=== PATIENT | female | born 1995 | race Caucasian/White ===

== ENCOUNTER 2017-07-15 12:52 | Emergency (ER) | payer OTHER ==
[~2017-07-15] VITALS: Ht 167.6 cm; Wt 51.7 kg
[~2017-07-15 12:52] MED LIST: AMOXICILLIN 50500 MG PO; BACTRIM DS TAB1 EACH PO; DIFLUCAN150 MG PO; DOXYCYCLINE 10100 MG PO; FLAGYL500 M1 PO; FLAGYL500 MG PO; HYDROCODONE-AP1 EAC6 PO; IBUPROFEN 800800 M1 PO; NAPROSYN500 MG PO; NOHOMEMEDICATIONS; NORCO 5-325 TA1 EACH PO; OMEPRAZOLE 20 M20 M1 PO; PHENERGAN 25 MG25 M1 PO; TRAMADOL 50 MG50 MG PO; ZOFRAN ODT4 MG PO; ZOFRAN4 MG PO
[2017-07-15] MEDS ORDERED: OSELB75 PO (13:10)
[2017-07-15] MEDS ORDERED: ZOFRAN ODT4 MG PO (13:11)
[2017-07-15] MEDS ORDERED: PROMETHAZINE V473 ML PO (13:11)
[2017-07-15] MEDS ORDERED: IBUPROFEN 600600 M1 PO (13:11)
[2017-07-15 14:04] VITALS: BP 108/75
== END 2017-07-15 14:05 | disposition home or self-care (01) ==
LOC: M.ERS 12:52
DX: J11.1 Influenza due to unidentified influenza virus with other respiratory manifestations (principal); K21.9 Gastro-esophageal reflux disease without esophagitis

== ENCOUNTER 2017-08-03 17:13 | Emergency (ER) | payer OTHER ==
[~2017-08-03] VITALS: Ht 167.6 cm; Wt 51.7 kg
[~2017-08-03 17:13] MED LIST changes: +IBUPROFEN 600600 M1 PO; +OSELB75 PO; +PROMETHAZINE V473 ML PO
[2017-08-03 17:30] LABS: URINE BILIRUBIN NEGATIVE (Negative); URINE BLOOD TRACE (Negative); URINE CLARITY CLEAR; URINE COLOR YELLOW; URINE GLUCOSE-RANDOM NEGATIVE (Negative); URINE KETONES 1+ (Negative); URINE LEUKOCYTES-REFLEX NEGATIVE (Negative); URINE NITRITE-REFLEX NEGATIVE (Negative); URINE PROTEIN TRACE (Negative); URINE SPECIFIC GRAVITY >= 1.030 (1.005-1.030); URINE UROBILINOGEN 0.2 E.U./dl (0.2-1.0)
[2017-08-03] MEDS ORDERED: IBUPROFEN 600600 M1 PO (18:59)
[2017-08-03] MEDS ORDERED: METROGEL-VAGINA70 GM VAG (18:59)
[2017-08-03 19:11] VITALS: BP 120/83
== END 2017-08-03 19:11 | disposition home or self-care (01) ==
LOC: M.ERS 17:13
PROVIDERS: Nurse Practitioner Family
DX: N76.0 Acute vaginitis (principal); B96.89 Other specified bacterial agents as the cause of diseases classified elsewhere; K08.89 Other specified disorders of teeth and supporting structures; K21.9 Gastro-esophageal reflux disease without esophagitis; F17.200 Nicotine dependence, unspecified, uncomplicated

== ENCOUNTER 2017-11-05 22:18 | Emergency (ER) | payer OTHER ==
[~2017-11-05] VITALS: Ht 167.6 cm; Wt 52.2 kg
[~2017-11-05 22:18] MED LIST changes: +METROGEL-VAGINA70 GM VAG
[2017-11-05] MEDS ORDERED: SERTRALINE HCL50 MG PO (22:33)
[2017-11-05 23:27] LABS: ABSOLUTE BASOPHILS 0.1 thou/uL (0.0-0.2); ABSOLUTE EOSINOPHILS 0.1 thou/uL (0.0-0.7); ABSOLUTE LYMPHOCYTES 1.9 thou/uL (0.8-5.3); ABSOLUTE MONOCYTES 0.5 thou/uL (0.0-1.2); ABSOLUTE NEUTROPHILS 3.6 thou/uL (1.6-8.1); BASOPHILS 0.8 %; EOSINOPHILS 1.1 %; HEMATOCRIT 38.8 % (37.0-47.0); HEMOGLOBIN 13.1 gm/dL (12.0-15.0); LYMPHOCYTES 31.1 %; MCH 32.5 pg (26.0-34.0); MCHC 33.8 g/dL (28.0-37.0); MCV 96.1 fL (80.0-100.0); MONOCYTES 8.6 %; MPV 7.1 fl. (7.2-11.1); NUCLEATED RBCS 0 /100WBC; PLATELET COUNT* 284 thou/uL (150-400); POLYS 58.4 %; RBC 4.04 mil/uL (4.20-5.00); RDW-CV 12.9 % (10.5-14.5); WBC 6.1 thou/uL (4.0-11.0)
[2017-11-05 23:32] LABS: CALCIUM 9.2 mg/dL (8.5-10.1); CREATININE 0.6 mg/dL (0.6-1.3); POTASSIUM 3.6 mmol/L (3.5-5.1)
[2017-11-05 23:36] LABS: TOTAL BILIRUBIN 0.3 mg/dL (<0.1-1.0); TOTAL PROTEIN 7.3 g/dL (6.4-8.2)
[2017-11-05 23:43] LABS: SALICYLATE 4.6 mg/dL (2.8-20.0)
[2017-11-06 00:28] LABS: URINE CLARITY CLEAR; URINE COLOR YELLOW
[2017-11-06 00:29] LABS: URINE BILIRUBIN NEGATIVE (Negative); URINE BLOOD NEGATIVE (Negative); URINE GLUCOSE-RANDOM NEGATIVE (Negative); URINE KETONES NEGATIVE (Negative); URINE LEUKOCYTES-REFLEX NEGATIVE (Negative); URINE NITRITE-REFLEX NEGATIVE (Negative); URINE PROTEIN NEGATIVE (Negative); URINE SPECIFIC GRAVITY 1.025 (1.005-1.030); URINE UROBILINOGEN 0.2 E.U./dl (0.2-1.0)
[2017-11-06 00:37] LABS: AMP/METHAMP Negative (Negative); BARBITURATES Negative (Negative); BENZODIAZEPINES Negative (Negative); COCAINE Negative (Negative); METHADONE Negative (Negative); OPIATES Negative (Negative); PCP Negative (Negative); THC Negative (Negative)
[2017-11-06 03:45] VITALS: BP 109/70
[2017-11-06 20:53] LABS: ACETAMINOPHEN < 2 ug/mL (10-30)
[2017-11-06 20:54] LABS: ALCOHOL < 10 mg/dL (<10)
== END 2017-11-06 03:46 | disposition home or self-care (01) ==
LOC: M.ERS 22:18
PROVIDERS: Emergency Medicine
DX: F32.9 Major depressive disorder, single episode, unspecified (principal); F41.9 Anxiety disorder, unspecified; K21.9 Gastro-esophageal reflux disease without esophagitis